=== PATIENT | female | born 1980 | race Caucasian/White ===

== ENCOUNTER 2017-09-17 14:28 | Emergency (ER) | payer SELFPAY ==
[~2017-09-17] VITALS: Ht 170.2 cm; Wt 48.1 kg
[2017-09-17 14:29] VITALS: BP 109/60
[2017-09-17] MEDS ORDERED: CLINDAMYCIN HCL 150 MG CAPSULE PO ONE ×2 (15:30→15:37)
[2017-09-17] MEDS ORDERED: IBUPROFEN 600 MG TABLET PO ONE ×2 (15:30→15:37)
== END 2017-09-17 16:32 | disposition home or self-care (01) ==
LOC: ER 14:31
DX: K11.20 Sialoadenitis, unspecified (principal); R22.0 Localized swelling, mass and lump, head; R51 Headache; N83.209 Unspecified ovarian cyst, unspecified side
CPT/HCPCS: A4606; Z7610